=== PATIENT | female | born 1960 | race Caucasian/White ===

== ENCOUNTER 2022-06-30 09:48 | Outpatient (REF) | payer MEDICAID, SELFPAY ==
[2022-06-30 17:38] LABS: Urine Cytology See Pathology rpt
== END 2022-06-30 09:49 | disposition home or self-care (01) ==
LOC: HO.LAB 09:48
PROVIDERS: PCP Nurse Practitioner Family; Visit Provider Nurse Practitioner Family
DX: R30.0 Dysuria (principal); R39.15 Urgency of urination; R35.0 Frequency of micturition; R35.1 Nocturia; R31.29 Other microscopic hematuria
CPT/HCPCS: 51798; 88112; 99202

== ENCOUNTER 2022-09-08 12:48 | Outpatient (REF) | payer MEDICAID, SELFPAY ==
--- NOTE | ~2022-09-08 | US_ITS ---
EXAMINATION: US RETROPERITONEAL COMPLETE (RENAL) CLINICAL INFORMATION: Nocturia. COMPARISON: None available. TECHNIQUE: Real-time imaging of the kidneys and bladder. FINDINGS: RIGHT KIDNEY: 11.2 x 4.9 x 5.6 cm (SAG x AP x TRV). The kidney is normal in size, contour, and echogenicity. Renal cortical thickness is normal. A few punctate calcifications are noted within the right kidney, possibly vascular reflections. No hydronephrosis. LEFT KIDNEY: 10.8 x 4.4 x 4.9 cm (SAG x AP x TRV). The kidney is normal in size, contour, and echogenicity. Renal cortical thickness is normal. 1.6 cm simple appearing midpole cyst for which no follow-up imaging is usually warranted. A few punctate calcifications are also noted within the left kidney, possibly vascular reflections. No hydronephrosis. BLADDER: Well distended and normal. Bilateral ureteral jets are demonstrated. Prevoid bladder volume is 198.1 mL. Postvoid bladder volume is 16.7 mL. Incidental finding: Within the right hepatic lobe there is a 2.0 cm relatively simple appearing cyst. US/US retroperitoneal comp IMPRESSION: 1. No hydronephrosis of either kidney. 2. A few punctate calcifications are noted within both kidneys, possibly vascular reflections. 3. 1.6 cm simple appearing left renal cyst for which no follow-up imaging is usually warranted.
== END 2022-09-08 12:49 | disposition home or self-care (01) ==
LOC: HO.US 12:48
PROVIDERS: PCP Nurse Practitioner Family; Visit Provider Nurse Practitioner Family
DX: R35.1 Nocturia (principal); R31.29 Other microscopic hematuria; R39.15 Urgency of urination; R35.0 Frequency of micturition; R30.0 Dysuria
CPT/HCPCS: 76770

== ENCOUNTER 2022-09-17 13:38 | Outpatient (REF) | payer MEDICAID, SELFPAY ==
[2022-09-17 16:56] LABS: Urine Cytology See Pathology rpt
== END 2022-09-17 13:39 | disposition home or self-care (01) ==
LOC: HO.LNP 13:38
PROVIDERS: PCP Nurse Practitioner Family; Visit Provider Nurse Practitioner Family
DX: R31.29 Other microscopic hematuria (principal); R30.0 Dysuria; N28.1 Cyst of kidney, acquired
CPT/HCPCS: 51798; 88112; 99212

== ENCOUNTER 2023-12-20 13:20 | Outpatient (REF) | payer MEDICAID, SELFPAY ==
[2023-12-20 16:28] LABS: Appearance Urine Clear; Color Urine Yellow; Glucose Urine UA Negative (Negative); Leukocyte Esterase Urine Trace (Negative); Nitrite Urine Negative (Negative); PH 5.5 (5.0-9.0); Specific Gravity - Urine <= 1.005 (1.005-1.025); UMIC TRIGGER UA YES; Urine Blood Trace (Negative); Urine Ketones Negative (Negative); Urine Protein Negative (Neg-Trace)
[2023-12-20 17:01] LABS: Bacteria Urine None Seen (None Seen); Hyaline Casts Urine 0-2 /LPF (0-2); RBC Urine 0-2 /HPF (0-2); Squamous Epithelial Cell Urine 0-2 /HPF (0-2); WBC Urine 0-5 /HPF (0-5)
== END 2023-12-20 13:21 | disposition home or self-care (01) ==
LOC: HO.HMGCLDS 13:20
PROVIDERS: PCP Nurse Practitioner Family; Visit Provider Nurse Practitioner Family
DX: R39.15 Urgency of urination (principal); R35.0 Frequency of micturition; R30.0 Dysuria
CPT/HCPCS: 81001; 87086

== ENCOUNTER 2024-02-16 15:53 | Outpatient (REF) | payer MEDICAID, SELFPAY ==
[2024-02-16 17:15] LABS: Appearance Urine Clear; Color Urine Yellow; Glucose Urine UA Negative (Negative); Leukocyte Esterase Urine Negative (Negative); Nitrite Urine Negative (Negative); PH 6.5 (5.0-9.0); Specific Gravity - Urine <= 1.005 (1.005-1.025); Urine Blood Negative (Negative); Urine Ketones Negative (Negative); Urine Protein Negative (Neg-Trace)
[2024-02-16 17:20] LABS: Bacteria Urine None Seen (None Seen); Hyaline Casts Urine 0-2 /LPF (0-2); RBC Urine 0-2 /HPF (0-2); Squamous Epithelial Cell Urine 0-2 /HPF (0-2); WBC Urine 0-5 /HPF (0-5)
== END 2024-02-16 15:54 | disposition home or self-care (01) ==
LOC: HO.LAB 15:53
PROVIDERS: PCP Nurse Practitioner Family; Visit Provider Nurse Practitioner Family
DX: R30.0 Dysuria (principal); R35.0 Frequency of micturition; R39.15 Urgency of urination; R31.29 Other microscopic hematuria; R35.1 Nocturia
CPT/HCPCS: 81001; 87086

== ENCOUNTER 2024-04-04 15:30 | Outpatient (AMB) | payer MEDICAID, SELFPAY ==
--- NOTE | 2024-04-04 15:30 | A.OFFVIS_ITS ---
Intake Visit Reasons: follow up Intake Note: Patient presents today for follow up on: dysuria and microhematuria Urology Medications: estradiol cream Blood Thinner: none PVR: 0ml's Leather Cartridge Belt Maker Required: No Accompanied by: Self / Same As Patient Allergies amoxicillin Allergy (Unknown, Verified 04/04/24 20:59) rash Sulfa (Sulfonamide Antibiotics) Allergy (Unknown, Verified 04/04/24 20:59) nausea, vomitting doxycycline Adverse Reaction (Verified 04/04/24 20:59) Headache, Vomiting sulfamethoxazole [From Bactrim] Adverse Reaction (Verified 04/04/24 20:59) Nausea and Vomiting trimethoprim [From Bactrim] Adverse Reaction (Verified 04/04/24 20:59) Nausea and Vomiting Medication List - Last Reconciled 04/04/24 by LO Magdaleno albuterol sulfate 90 mcg/actuation (Ventolin HFA) 2 puffs inhalation Q4H PRN ergocalciferol (vitamin D2) 1,250 mcg PO QWEEK estradiol 0.01%(0.1mg/gram) 3 times a week; pea sized amount to urethra 3 times a week 30 days montelukast 10 mg PO DAILY HPI Comments Details: Selena is a pleasant 63-year-old female patient of Dr. Neff. Patient presents to the office today for a follow-up. Of note, patient was seen last over a year ago at which time recommendation was made for a three-month follow up however patient reports she had been doing well therefore she canceled her appointment. She reports more recently she has been experiencing lower urinary tract symptoms therefore she called the office for follow-up. She reports noting ongoing issues with lower urinary bladder pressure as well as UTI like symptoms. In review of patient's chart it appears urine cultures were ordered and obtained 01/10 noted lactobacillus and 02/10 no growth. She continues to report episodes of dysuria, urinary urgency, and urinary frequency. Previous workup has included a retroperitoneal ultrasound 09/09 that noted no hydronephrosis of either kidney, a few punctate calcifications are noted within both kidneys, possibly vascular reflections and 1.6 cm simple appearing left renal cyst for which no follow-up imaging per radiology report. Patient with a history of microscopic hematuria and we discussed further workup to include in office cystoscopy however she had declined in previous office visits. In office urinalysis results reviewed with the patient today microscopic hematuria again noted. Discussed given lower urinary tract symptoms to obtain CT urogram as well as to perform in office cystoscopy for further assessment evaluation. Previous urine cytology results 07/12:Few atypical urothelial cells 10/10 Negative for high-grade urothelial carcinoma. When asked she denies any known previous nicotine dependence and or workplace chemical exposure. We discussed at length potential causes of microscopic hematuria as well as lower urinary tract symptoms she is experiencing. She otherwise offers no other issues or concerns at this time. [facility] Medical History Microhematuria Nocturia Primary fibromyalgia syndrome Joint pain Asthma Abnormal mammography Major depressive disorder Motility disorder of intestine Anxiety Chronic back pain Vitamin A deficiency Surgical History Hx of tubal ligation Hx of tonsillectomy Family History Mother Arthritis Lactose intolerance Diabetes mellitus Myocardial infarction Maternal Grandfather Myocardial infarction Pacemaker Maternal Grandmother Myocardial infarction Father Malignant neoplastic disease Diabetes mellitus Sister Malignant tumor of breast Sleep apnea Paternal Grandmother Diabetes mellitus Brother Anxiety Review of Systems Const Details: Patient reports having history of fibromyalgia Reports no additional complaints Eyes Reports no additional complaints ENT Reports no additional complaints Card Reports no additional complaints Resp Reports no additional complaints GI Reports no additional complaints Reports as per HPI Musc Reports no additional complaints Neuro Reports no additional complaints Psych Reports no additional complaints Endo Reports no additional complaints Vidal/Lymph Reports no additional complaints Aller/Immun Reports no additional complaints Physical Exam Const General: cooperative, healthy appearing, comfortable, no acute distress, well developed, alert and awake Orientation/consciousness: patient oriented x3 HEENT Head: Yes normal to inspection, Yes normocephalic and Yes atraumatic Eyes General: appearance normal, both eyes and all related structures Neck Neck: Yes normal visual inspection and Yes trachea midline Chest Chest palpation & inspection: normal inspection of the chest Resp Effort & Inspection: normal respiratory effort and able to speak in complete sentences Cardio Rate: regular rate GI Inspection: Yes normal to inspection General: Yes no CVA tenderness External Female Exam: normal external appearance Speculum Exam - Vagina: normal appearance of the vagina Back/Spine/Pelvis Back: no CVA tenderness Neuro General: patient oriented x3 Extrem General: Yes normal to inspection Psych Appearance: grossly normal and well kempt Mental Status: mental status grossly normal Speech and movement: Normal speech and movement present and Clear speech present Affect: normal affect Attitude: cooperative Thought process: Normal thought process present Thought content: Normal thought content present Insight: Good insight present (Psych) Judgement: Good judgement present (Psych) Office Procedures Post Void Residual Post Residual Void Post Void Residual (PVR): 0 [id number] Void Residual by ultrasound Results AMB Urinalysis, Automated UA Leukoctes 0 Mo/uL Last Edit by [employer] on 04/04/24 15:47 UA Nitrite Last Edit by [employer] on 04/04/24 15:47 UA Urobilinogen 0.2 mg/dL Last Edit by [employer] on 04/04/24 15:47 UA Protein 0 mg/dL Last Edit by [employer] on 04/04/24 15:47 UA pH 6.0 Last Edit by [employer] on 04/04/24 15:47 UA Blood 25 Benjamin/uL Last Edit by [employer] on 04/04/24 15:47 UA Specific [place] 1.010 Last Edit by [employer] on 04/04/24 15:47 UA Ketone Last Edit by [employer] on 04/04/24 15:47 UA Bilirubin 0 mg/dL Last Edit by [employer] on 04/04/24 15:47 UA Glucose 0 mg/dL Last Edit by [employer] on 04/04/24 15:47 Results Reviewed Results Reviewed: Laboratory Last Values Urine pH (Auto) 6.0 04/04/24 15:46 Specific [place] (Auto) 1.010 04/04/24 15:46 Urine Protein (Auto) 0 mg/dL 04/04/24 15:46 Glucose (UA)(Auto) 0 mg/dL 04/04/24 15:46 Urine Blood (Auto) 25 Benjamin/uL 04/04/24 15:46 Urine Bilirubin (Auto) 0 mg/dL 04/04/24 15:46 Urine Urobilinogen (Auto) 0.2 mg/dL 04/04/24 15:46 Leukocyte Esterase (Auto) 0 Mo/uL 04/04/24 15:46 Assessment & Plan Assessment & Plan (1) Microhematuria: Code(s): R31.29 - Other microscopic hematuria Category: Medical (2) Renal cyst: Code(s): N28.1 - Cyst of kidney, acquired Category: Medical (3) Dysuria: Code(s): R30.0 - Dysuria Category: Medical (4) Urinary frequency: Code(s): R35.0 - Frequency of micturition Category: Medical (5) Urinary urgency: Code(s): R39.15 - Urgency of urination Category: Medical Plan In office urinalysis results reviewed with the patient today; as noted above; will send for urine cytology. PVR [address] urogram for further assessment evaluation. BUN and creatinine ordered for imaging. Discussed bladder triggers/irritants. Continue Estrace cream as discussed and prescribed. Discussed at length potential causes of persistent microscopic hematuria as well as lower urinary tract symptoms she is experiencing. Follow-up next available in office cystoscopy; or sooner with any issues, concerns, and or questions. Orders: Orders AMB Urinalysis Automated Today Z13.9 - Encounter for screening, unspecified CT urogram Today R31.0 - Gross hematuria Urine Cytology Today R31.0 - Gross hematuria AMB Post Void Residual by ultrasound Today R35.0 - Frequency of micturition Blood Urea Nitrogen Today R31.0 - Gross hematuria Creatinine Today R31.0 - Gross hematuria Medications: Changed From estradiol 0.01%(0.1mg/gram) vaginally 3 times a week; pea sized amount to urethra 3 times a week 30 days 42.5 grams 0RF To estradiol 0.01%(0.1mg/gram) 3 times a week; pea sized amount to urethra 3 times a week 30 days 42.5 grams 2RF Patient Instructions: The patient had an opportunity to ask questions regarding the treatment plan. All questions were answered. Physical exam, labs, and imaging were discussed and reviewed in detail. As well as risks, benefits, and discussion of treatment choices. No major barriers to understanding were identified. The patient expressed understanding and agreement with the above treatment plan. The patient was made aware they should contact our office by phone for worsening of their current condition, the appearance of new symptoms, or with any questions or concerns. Compliance is encouraged with any medications and follow up testing that is ordered. It is a privilege to be allowed the opportunity to participate in? your urological care.? Again, if you have any questions or concerns If you have any questions or concerns please do not hesitate to contact me. The office is [phone]. This note is constructed using voice recognition software. While every effort has been made to ensure accuracy clinical appeals reviewer errors may have been included. Yours sincerely, LO Magdaleno Coding Level of Care Code Est Pt Level 4 (00887) Complex EM visit Add On G2211 Diagnoses Microhematuria R31.29 Renal cyst N28.1 Dysuria R30.0 Urinary frequency R35.0 Urinary urgency R39.15 CPT Codes Post Residual Void - PVR CPT Code: 32279-Mryi Void Residual by ultrasound ([id number]) Time Spent (min) 25
== END 2024-04-04 16:18 | disposition home or self-care (01) ==
PROVIDERS: PCP Nurse Practitioner Family; Visit Provider Nurse Practitioner Family
DX: R31.29 Other microscopic hematuria (principal); N28.1 Cyst of kidney, acquired; R30.0 Dysuria; R35.0 Frequency of micturition; R39.15 Urgency of urination; Z13.9 Encounter for screening, unspecified
CPT/HCPCS: 99214; G2211

== ENCOUNTER 2024-05-18 09:28 | Outpatient (REF) | payer MEDICAID, SELFPAY ==
[2024-05-18 11:04] LABS: Blood Urea Nitrogen 10 mg/dL (9-16); Estimated Glomerular Filt Rate > 60
== END 2024-05-18 09:29 | disposition home or self-care (01) ==
LOC: HO.LAB 09:28
PROVIDERS: PCP Nurse Practitioner Family; Visit Provider Urology
DX: R31.0 Gross hematuria (principal)
CPT/HCPCS: 36415; 82565; 84520